=== PATIENT | female | born 1980 | race African-American/Black ===

== ENCOUNTER 2019-06-29 20:09 | Emergency (ER) | payer MEDICAID ==
[~2019-06-29] VITALS: Ht 152.4 cm; Wt 50.0 kg
[2019-06-29] MEDS ORDERED: SODIUM CHLORIDE 0.9% 1,000 ML IV ONE (21:10)
[2019-06-29] MEDS ORDERED: KETOROLAC 30MG/ML VIAL IV STA (21:10)
[2019-06-29] MEDS ORDERED: ONDANSETRON HCL 4MG/2ML INJ IV STA (21:10)
[2019-06-29 21:55] LABS: CLARITY URINE CLEAR (CLEAR); COLOR URINE YELLOW (YELLOW); KETONES URINE NEGATIVE (NEGATIVE); LEUKOCYTE ESTERASE URINE NEGATIVE (NEGATIVE); NITRITE URINE NEGATIVE (NEGATIVE); OCCULT BLOOD URINE NEGATIVE (NEGATIVE); PH URINE 8.5 (4.5-8.0); PROTEIN URINE NEGATIVE (NEGATIVE); SPECIFIC GRAVITY URINE 1.018 (1.005-1.030)
[2019-06-29 21:58] LABS: BASOPHILS % 0.5 % (0.0-2.0); EOSINOPHILS % 0.7 % (0.0-5.0); HEMATOCRIT. 40.4 % (36.0-48.0); HEMOGLOBIN. 13.7 g/dL (12.0-16.0); MEAN CORPUSCULAR HEMOGLOBIN 31.6 pg (28.0-32.0); MEAN CORPUSCULAR VOLUME 93.4 fL (81.0-99.0); MEAN PLATELET VOLUME 6.8 fl (7.4-10.4); MONOCYTES % 8.3 % (2.0-8.0); NEUTROPHILS % 50.5 % (40.0-76.0); PLATELET 320 x1000/uL (130-400); RED BLOOD CELL COUNT 4.33 mill/uL (4.2-5.4); RED CELL DISTRIBUTION WIDTH 13.8 % (11.6-14.6)
[2019-06-29 22:00] LABS: CHLORIDE 108 mEq/L (98-107)
[2019-06-30 00:47] VITALS: BP 116/72
== END 2019-06-30 00:51 | disposition home or self-care (01) ==
LOC: ER 21:38
DX: R20.2 Paresthesia of skin (principal); R53.1 Weakness; J45.909 Unspecified asthma, uncomplicated; F17.200 Nicotine dependence, unspecified, uncomplicated
CPT/HCPCS: 36415; 70450; 80053; 81003; 81025; 83690; 84443; 85025; 96361; 96374; 96375; 99284; J1885; J2405; J7030

== ENCOUNTER 2023-01-17 08:15 | Emergency (ER) | payer MEDICAID, OTHER ==
[~2023-01-17] VITALS: Ht 152.4 cm; Wt 58.0 kg
[2023-01-17 08:22] VITALS: BP 134/72
[2023-01-17] MEDS ORDERED: IBUPROFEN 600MG TABLET PO ONE (09:00)
[2023-01-17] MEDS ORDERED: IBUP-1523 MT (11:05)
== END 2023-01-17 11:45 | disposition home or self-care (01) ==
LOC: ER 08:15
DX: M13.141 Monoarthritis, not elsewhere classified, right hand (principal)
CPT/HCPCS: 73120; 99283